=== PATIENT | male | born 1960 | race Two or more races ===

== ENCOUNTER 2020-05-14 19:04 | Emergency (ER) | payer OTHER ==
--- NOTE | 2020-05-14 19:32 | ER Document Report ---
ED Medical Screen (RME) - General Chief Complaint: Cough Stated Complaint: COUGH,SHORT OF BREATH Time Seen by Provider: 05/14/20 19:24 - HPI Notes: Patient is a 60-year-old male who presents with shortness of breath that worsened this morning. Patient has been sick for the past week with cough and nasal congestion. He tested positive for COVID-19 4 days ago. He reports fever, chest pain, and dizziness but denies abdominal pain, vomiting, diarrhea. He denies any medical problems. - Related Data Allergies/Adverse Reactions: No Known Allergies Allergy (Verified 05/14/20 19:29) Physical Exam - Vital signs Vitals: Temp Pulse Resp BP Pulse Ox 98.3 F 110 H 22 H 114/71 92 05/14/20 19:16 05/14/20 19:16 05/14/20 19:16 05/14/20 19:16 05/14/20 19:16 - Respiratory Respiratory status: No respiratory distress Breath sounds: Normal Course - Re-evaluation Re-evalutation: I have greeted and performed a rapid initial assessment of this patient. A comprehensive ED assessment and evaluation of the patient, analysis of test results and completion of medical decision making process will be conducted by an additional ED providers. - Vital Signs Vital signs: Temp Pulse Resp BP Pulse Ox 98.3 F 110 H 22 H 114/71 92 05/14/20 19:16 05/14/20 19:16 05/14/20 19:16 05/14/20 19:16 05/14/20 19:16
--- NOTE | 2020-05-14 20:06 | ER Document Report ---
ED General - General Chief Complaint: Shortness Of Breath Stated Complaint: COUGH,SHORT OF BREATH Time Seen by Provider: 05/14/20 19:24 Primary Care Provider: KAYE PEREZ MD [Primary Care Provider] - Follow up as needed - [facility] Notes: 60-year-old male presents with shortness of breath. Patient is Covid positive, he has been symptomatic for 1 week (05/07) and received positive swab results on 05/10. He states he is overall been doing fairly well, he has fatigue and shortness of breath, however started to feel better today. He had eaten a full meal today and got up to shower, however afterwards he became more short of breath than he previously had been and felt generalized weakness. He has a home pulse ox which has been ranging from 92 to 94%. He denies cough, chest pain or GI symptoms. He states he has a history of high cholesterol and reflux. He has never smoked. - Related Data Allergies/Adverse Reactions: Penicillins Allergy (Verified 05/14/20 20:34) Home Medications: tylenol, vitamin c, zinc Past Medical History - General Information source: Patient - Social History Smoking Status: Never Smoker Frequency of alcohol use: None Family History: Reviewed & Not Pertinent Review of Systems - Review of Systems Constitutional: denies: Fever EENT: No symptoms reported Cardiovascular: denies: Chest pain Respiratory: Short of breath Gastrointestinal: denies: Abdominal pain, Diarrhea, Nausea, Vomiting Genitourinary: No symptoms reported Male Genitourinary: No symptoms reported Musculoskeletal: No symptoms reported Skin: No symptoms reported Hematologic/Lymphatic: No symptoms reported Neurological/Psychological: Weakness - Generalized Physical Exam - Vital signs Vitals: Temp Pulse Resp BP Pulse Ox 98.3 F 110 H 22 H 114/71 92 05/14/20 19:16 05/14/20 19:16 05/14/20 19:16 05/14/20 19:16 05/14/20 19:16 - General General appearance: Appears well, Alert In distress: None - HEENT Head: Normocephalic, Atraumatic Extraocular movements intact: Yes Pupils: PERRL Neck: Normal - Respiratory Respiratory status: No respiratory distress. No: Labored, Tachypnea Breath sounds: Other - Overall has good air movement, there is some fine rhonchi at bases - Cardiovascular Rhythm: Regular Heart sounds: Normal auscultation - Abdominal Tenderness: Nontender - Extremities General upper extremity: Normal ROM General lower extremity: Normal ROM - Neurological Neuro grossly intact: Yes Cognition: Normal Orientation: AAOx4 Speech: Normal Cranial nerves: Normal Motor strength normal: LUE, RUE, LLE, RLE Sensory: Normal - Psychological Associated symptoms: Normal affect - Skin Skin Temperature: Warm Course - Re-evaluation Re-evalutation: 60-year-old male Covid positive x1 week here for new increasing shortness of breath today, had initially been feeling better. On exam he is in no acute distress, has good airflow with some mild rhonchi at the bases. On check-in he was 92% on room air, however in the room talking with him his pulse ox is 96 to 98% on room air. Suspect his symptoms are likely due to his known a Covid infection. Would not suspect superimposed infection at this time or other cardiac etiology, he has no focal neuro deficits. Will treat with albuterol, fluids and guaifenesin. No hypoxia therefore will hold on Decadron. Check chest x-ray and labs. 05/14/20 22:10 No leukocytosis or left shift, no lymphopenia. Electrolytes within normal limits. Creatinine within normal limits. No transaminitis. Slightly elevated CRP. Chest x-ray with bilateral infiltrates consistent with known Covid infection. Patient has remained on room air with no episodes of hypoxia. 05/14/20 22:17 Patient was updated on results. He states that he is feeling better and currently denies symptoms. I discussed with him continued symptomatic control at home. He has the albuterol MDI at bedside and I discussed these with him. Given his bilateral infiltrates, will prescribe Z-Titus to cover for secondary infection. Return precautions discussed, verbalized understanding, stable at time of discharge. Patient's was updated. - Vital Signs Vital signs: Temp Pulse Resp BP Pulse Ox 98.3 F 110 H 27 H 129/74 H 97 05/14/20 19:16 05/14/20 19:16 05/14/20 22:00 05/14/20 21:31 05/14/20 22:00 - Laboratory Result Diagrams: 05/14/20 20:20 05/14/20 20:20 Laboratory results interpreted by me: 05/14/20 05/14/20 20:20 20:20 Hgb 17.3 H BUN 29 H C-Reactive Protein 48.1 H - Diagnostic Test Radiology reviewed: Image reviewed, Reports reviewed - EKG Interpretation by Me Additional EKG results interpreted by me: EKG is interpreted by me. Normal sinus rhythm, rate 87. Narrow QRS, QTC within normal limits. No ST segment elevation or depression. Discharge - Discharge Clinical Impression: COVID-19 virus infection Condition: Stable Disposition: HOME, SELF-CARE Additional Instructions: You may use albuterol inhaler every 4 hours as needed for shortness of breath. Be sure to drink plenty of fluids. Please start azithromycin which covers for possible secondary bacterial pneumonia. You can continue to use the pulse ox at home to monitor oxygen saturations. Please return to the emergency department for worsening of symptoms or if the pulse ox drops below 90. Prescriptions: Azithromycin 250 mg PO ASDIR 5 Days #6 tablet Referrals: KAYE PEREZ MD [Primary Care Provider] - Follow up as needed
[2020-05-14] MEDS ORDERED: ALBUTEROL SULFATE HFA (90 MCG/PUFF) 8 GM MDI (1 MDI/ER DISP) IH ONE (20:23)
[2020-05-14] MEDS ORDERED: GUAIFENESIN 600 MG TABLET.SA PO ONE (20:24)
[2020-05-14] MEDS ORDERED: RINGERS SOLUTION,LACTATED 1,000 ML IV ONE (20:24)
[2020-05-14 20:47] LABS: ABSOLUTE LYMPHOCYTES (AUTO) 0.8 10^3/uL (0.5-4.7); ABSOLUTE MONOCYTES (AUTO) 0.7 10^3/uL (0.1-1.4); ABSOLUTE NEUT (AUTO) 4.7 10^3/uL (1.7-8.2); BASOPHILS % (AUTO) 0.5 % (0-2); EOSINOPHILS % (AUTO) 0.6 % (0-6); HEMATOCRIT 49.8 % (37.9-51.0); HEMOGLOBIN 17.3 g/dL (13.5-17.0); LYMPHOCYTES % (AUTO) 13.4 % (13-45); MEAN CORPUSCULAR HEMOGLOBIN 32.8 pg (27.0-33.4); MEAN CORPUSCULAR HGB CONC 34.7 g/dL (32.0-36.0); MEAN CORPUSCULAR VOLUME 94 fl (80-97); MONOCYTES % (AUTO) 10.7 % (3-13); PLATELET COUNT 243 10^3/uL (150-450); RED BLOOD COUNT 5.28 10^6/uL (4.35-5.55); RED CELL DISTRIBUTION WIDTH 13.8 % (11.5-14.0); SEGMENTED NEUTROPHILS % (AUTO) 74.8 % (42-78); TOTAL CELLS COUNTED % (AUTO) 100 %; WHITE BLOOD COUNT 6.3 10^3/uL (4.0-10.5)
[2020-05-14 21:07] LABS: ALBUMIN 3.9 g/dL (3.5-5.0); ALKALINE PHOSPHATASE 72 U/L (38-126); ANION GAP 9 (5-19); ASPARTATE AMINO TRANSFERASE 43 U/L (17-59); BILIRUBIN,DIRECT 0.3 mg/dL (0.0-0.4); BLOOD UREA NITROGEN 29 mg/dL (7-20); C-REACTIVE PROTEIN 48.1 mg/L (<10.0); CALCIUM 8.7 mg/dL (8.4-10.2); CARBON DIOXIDE 28 mmol/L (22-30); CHLORIDE 104 mmol/L (98-107); GLUCOSE 105 mg/dL (75-110); POTASSIUM 4.2 mmol/L (3.6-5.0)
--- NOTE | 2020-05-14 21:18 | RADIOLOGY REPORT (SQ) ---
EXAM DESCRIPTION: XR CHEST 1 VIEW COMPLETED DATE/TME: 05/14/2020 20:43 CLINICAL HISTORY: 60 years, Male, shortness of breath COMPARISON: None. NUMBER OF VIEWS: One TECHNIQUE: Single frontal view of the chest was obtained portably LIMITATIONS: None. FINDINGS: Cardiac and mediastinal contours are normal. Multifocal patchy opacity is noted throughout both lungs. No pneumothorax or large pleural effusion. IMPRESSION: Multifocal bilateral airspace disease, suspicious for multifocal pneumonia/viral pneumonitis. copyright 2010 [employer]- All Rights Reserved
[2020-05-14 22:43] VITALS: BP 126/75
--- NOTE | 2020-05-15 17:43 | EKG REPORT ---
SEVERITY:- NORMAL ECG - SINUS RHYTHM : Confirmed by: Dagoberto Bunn MD 15-May-2020 17:43:04
== END 2020-05-14 22:43 | disposition home or self-care (01) ==
LOC: ER 19:04
DX: U07.1 COVID-19 (principal); R06.02 Shortness of breath; R05 Cough
CPT/HCPCS: 93005; 99285; 96360; 36415; 82728; 85025; 86140; 80053; 71045; 93010; J7120; J3490